=== PATIENT | female | born 1960 | race African-American/Black ===

== ENCOUNTER 2020-02-17 14:24 | Emergency (ER) | payer OTHER ==
[~2020-02-17] VITALS: Ht 167.6 cm; Wt 79.4 kg
[~2020-02-17 14:24] MED LIST: CIPROFLOXACIN500 M1 PO; FLAGYL500 MG PO; PHENERGAN 25 MG25 M1 PO
[2020-02-17 15:32] LABS: ABSOLUTE NEUTROPHILS 8.7 thou/uL (1.4-8.2); BASOPHILS 0.5 % (0.0-2.0); EOSINOPHILS 0.1 % (0.0-3.0); HEMATOCRIT 51.7 % (37.0-47.0); HEMOGLOBIN 16.9 gm/dL (12.0-15.0); LYMPHOCYTES 16.4 % (24.0-44.0); MCH 29.5 pg (26.0-34.0); MCHC 32.8 g/dL (28.0-37.0); MCV 90.1 fL (80.0-100.0); MONOCYTES 7.8 % (1.0-8.0); PLATELET COUNT 164 thou/uL (150-400); POLYS 75.2 % (36.0-66.0); RBC 5.74 mil/uL (4.20-5.00); RDW 13.6 % (10.5-14.5); WBC 11.6 thou/uL (4.0-11.0)
[2020-02-17 15:42] LABS: CALCIUM 10.4 mg/dL (8.5-10.1); CREATININE 1.4 mg/dL (0.6-1.0); POTASSIUM 3.8 mmol/L (3.5-5.1)
[2020-02-17 15:48] LABS: ALBUMIN 4.3 g/dL (3.4-5.0); TOTAL BILIRUBIN 1.1 mg/dL (0.2-1.0); TOTAL PROTEIN 8.4 g/dL (6.4-8.2); TROPONIN-I 0.12 ng/mL (<0.06)
--- NOTE | 2020-02-17 16:57 | EKG ---
[place] [address] [facility] [place] [address] ELECTROCARDIOGRAM REPORT Name: MISTY GUNTER Room #: [facility] [id number] Admission: 02/17/20 Attend Phys: Discharge: Date of : 62 Report #: [id number] [facility] ED Test Date: 2020-02-17 Test Time: 15:35:46 Pat Name: MISTY GUNTER Department: Room: Gender: F Nurse [facility]: CORI : 1960 Requested By: Cody Cha Order Number: [id number] MD: Antoine Melara Measurements Intervals [place] Rate: 62 P: 56 IN: 103 QRS: 59 QRSD: 95 T: 57 QT: 382 QTc: 388 Interpretive Statements Sinus rhythm Short IN interval RSR' in V1 or V2, right VCD or RVH Compared to ECG 02/11/2008 23:40:47 Short IN interval now present RSR' in V1 or V2 now present Electronically Signed On 02-17-2020 16:57:09 [employer]IE[employer] by Antoine Melara [email or web address] <ELECTRONICALLY SIGNED> By: Antoine Melara MD, [facility] 02/17/20 1657 [id number] 153 Antoine Melara MD, [facility] /EPI
[2020-02-17 19:13] VITALS: BP 161/74
== END 2020-02-17 19:13 | disposition home or self-care (01) ==
LOC: ER 14:24
PROVIDERS: Emergency Medicine
DX: I10 Essential (primary) hypertension (principal); R79.89 Other specified abnormal findings of blood chemistry; Z86.73 Personal history of transient ischemic attack (TIA), and cerebral infarction without residual deficits; Z79.2 Long term (current) use of antibiotics; Z79.899 Other long term (current) drug therapy